=== PATIENT | male | born 1940 | race Caucasian/White ===

== ENCOUNTER → 2019-01-18 | Outpatient (CLI) | payer MEDICARE | END | disposition home or self-care (01) | LOC: RAH 07:48 | PROVIDERS: ATTEND Family Medicine | DX: M19.072 Primary osteoarthritis, left ankle and foot (principal); R20.0 Anesthesia of skin | CPT/HCPCS: 73630 ==

== ENCOUNTER → 2019-02-01 | Outpatient (CLI) | payer MEDICARE | END | disposition home or self-care (01) | LOC: RAH 14:01 | PROVIDERS: ATTEND Family Medicine | DX: R60.0 Localized edema (principal); D75.89 Other specified diseases of blood and blood-forming organs; I70.298 Other atherosclerosis of native arteries of extremities, other extremity | CPT/HCPCS: 76770; 93925 ==